=== PATIENT | male | born 1955 | race Caucasian/White ===

== ENCOUNTER 2017-10-08 03:39 | Inpatient (IN) | payer OTHER ==
[2017-10-08] VITALS (7 sets, daily range): BP systolic 100–153; BP diastolic 55–96; Ht 162.6 cm; Wt 82.0 kg
[~2017-10-08] VITALS: Ht 162.6 cm; Wt 82.0 kg
[2017-10-08 04:10] LABS: BASOPHIL % 0.5 % (0-2); PLATELET COUNT 343 x10^3mcL (130-400); RED CELL DISTRIBUTION WIDTH 18.6 % (11.5-14.5)
[2017-10-08 04:35] LABS: BILIRUBIN TOTAL 0.5 mg/dL (0.20-1.00); CALCIUM 8.1 mg/dL (8.5-10.1); CARBON DIOXIDE 24.4 mmol/L (21-32); POTASSIUM SERUM 5.5 mmol/L (3.5-5.1); TOTAL PROTEIN, SERUM 7.3 g/dL (6.4-8.2)
[2017-10-08 04:49] LABS: ALBUMIN 2.3 g/dL (3.4-5.0)
[2017-10-08 04:51] LABS: CREATININE SERUM 6.9 mg/dL (0.7-1.3)
[2017-10-08 07:20] LABS: MAGNESIUM 2.5 mg/dL (1.8-2.4)
[2017-10-08 07:23] LABS: CHOLESTEROL/HDL RATIO 2.3
[2017-10-08 07:29] LABS: T3 TOTAL 0.28 ng/mL
[2017-10-08 07:48] LABS: FREE T4 0.9 ng/dL (0.76-1.46); FREE THYROXINE INDEX 2.1 ug/dL (1.4-4.5); T4(THYROXINE) 5.5 ug/dL (4.7-13.3)
[2017-10-08] MEDS ORDERED: ZESTRIL5 MG PO (10:38)
[2017-10-08] MEDS ORDERED: LEVEMIR100 U/M1 SC (10:38)
[2017-10-08] MEDS ORDERED: METOPROLOL TART50 MG PO (10:38)
[2017-10-08] MEDS ORDERED: FUROSEMIDE40 MG PO (10:39)
[2017-10-08] MEDS ORDERED: ELIQUIS2.5 MG PO (10:39)
[2017-10-08] MEDS ORDERED: PEPCID20 MG PO (10:39)
[2017-10-08] MEDS ORDERED: TAMSULOSIN HYD0.4 M1 PO (10:39)
[2017-10-09 05:20] VITALS: BP 113/73
[2017-10-09 06:25] LABS: BASOPHIL % 0.3 % (0-2); PLATELET COUNT 237 x10^3mcL (130-400)
[2017-10-09 06:29] LABS: RED CELL DISTRIBUTION WIDTH 18.7 % (11.5-14.5)
[2017-10-09 06:30] LABS: CALCIUM 7.7 mg/dL (8.5-10.1); CARBON DIOXIDE 28.5 mmol/L (21-32); POTASSIUM SERUM 4.8 mmol/L (3.5-5.1)
[2017-10-09 06:34] LABS: CREATININE SERUM 5.2 mg/dL (0.7-1.3)
[2017-10-09 09:34] VITALS: BP 110/66
[2017-10-09 17:59] VITALS: BP 138/73
[2017-10-09 21:11] VITALS: BP 142/68
[2017-10-10 06:02] VITALS: BP 144/75
[2017-10-10 06:37] LABS: BASOPHIL % 0.1 % (0-2); PLATELET COUNT 195 x10^3mcL (130-400)
[2017-10-10 06:39] LABS: RED CELL DISTRIBUTION WIDTH 18.9 % (11.5-14.5)
[2017-10-10 06:54] LABS: CALCIUM 8.3 mg/dL (8.5-10.1); CARBON DIOXIDE 24.9 mmol/L (21-32); MAGNESIUM 2.4 mg/dL (1.8-2.4); PHOSPHOROUS 8.5 mg/dL (2.5-4.9)
[2017-10-10 07:04] LABS: CREATININE SERUM 6.6 mg/dL (0.7-1.3); POTASSIUM SERUM 5.7 mmol/L (3.5-5.1)
[2017-10-10 10:43] VITALS: BP 149/65
[2017-10-10] MEDS ORDERED: NOVOLOG100 U/ML SC (13:38)
[2017-10-10] MEDS ORDERED: LAC PO (13:40)
[2017-10-10] MEDS ORDERED: LEVAQUIN750 MG PO (13:40)
[2017-10-10 14:03] VITALS: BP 149/65
== END 2017-10-10 20:29 | disposition home health service (06) | DRG 139 ==
LOC: ED 03:39 → DU 06:05 → MU 06:05 → DU 07:00 → MU 17:50
PROVIDERS: Emergency Medicine; Family Medicine
PROC: 5A1D70Z Performance of Urinary Filtration, Intermittent, Less than 6 Hours Per Day (ICD-10-PCS; principal; 2017-10-08)
PROC: 5A1D70Z Performance of Urinary Filtration, Intermittent, Less than 6 Hours Per Day (ICD-10-PCS; 2017-10-10)
DX: J18.9 Pneumonia, unspecified organism (principal); J96.00 Acute respiratory failure, unspecified whether with hypoxia or hypercapnia; I50.43 Acute on chronic combined systolic (congestive) and diastolic (congestive) heart failure; R78.81 Bacteremia; N18.6 End stage renal disease; E11.22 Type 2 diabetes mellitus with diabetic chronic kidney disease; I48.91 Unspecified atrial fibrillation; E11.65 Type 2 diabetes mellitus with hyperglycemia; I13.2 Hypertensive heart and chronic kidney disease with heart failure and with stage 5 chronic kidney disease, or end stage renal disease; Z99.2 Dependence on renal dialysis; E87.5 Hyperkalemia; E83.39 Other disorders of phosphorus metabolism; Z60.2 Problems related to living alone; D72.829 Elevated white blood cell count, unspecified; F43.9 Reaction to severe stress, unspecified; E02 Subclinical iodine-deficiency hypothyroidism; N40.0 Benign prostatic hyperplasia without lower urinary tract symptoms; D63.1 Anemia in chronic kidney disease; Z87.891 Personal history of nicotine dependence
CPT/HCPCS: 82962; 83880; 84439; 94150; 97110-GP; 97116-GP; 97530-GP; 97535-GP; J0610; J1644; J1815; J1956; J2543; J2920; J3490; J7030; J7040; J7042; J7620; Q0092

== ENCOUNTER 2018-03-24 22:46 | Emergency (ER) | payer OTHER ==
[~2018-03-24 22:46] MED LIST: ELIQUIS2.5 MG PO; FUROSEMIDE40 MG PO; LAC PO; LEVAQUIN750 MG PO; LEVEMIR100 U/M1 SC; METOPROLOL TART50 MG PO; NOVOLOG100 U/ML SC; PEPCID20 MG PO; TAMSULOSIN HYD0.4 M1 PO; ZESTRIL5 MG PO
[2018-03-24 22:51] VITALS: Ht 162.6 cm
[2018-03-24 23:23] LABS: BASOPHIL % 0.8 % (0-2); PLATELET COUNT 134 x10^3mcL (130-400)
[2018-03-24 23:25] LABS: RED CELL DISTRIBUTION WIDTH 19.8 % (11.5-14.5)
[2018-03-24 23:46] LABS: ALBUMIN 2.1 g/dL (3.4-5.0); BILIRUBIN TOTAL 0.6 mg/dL (0.20-1.00); CALCIUM 7.7 mg/dL (8.5-10.1); CARBON DIOXIDE 29.2 mmol/L (21-32); POTASSIUM SERUM 4.3 mmol/L (3.5-5.1); TOTAL PROTEIN, SERUM 6.6 g/dL (6.4-8.2)
[2018-03-24 23:52] LABS: CREATININE SERUM 6.3 mg/dL (0.7-1.3)
[2018-03-25 05:09] VITALS: BP 118/59
== END 2018-03-25 05:09 | disposition home or self-care (01) ==
LOC: ED 22:46
PROVIDERS: Emergency Medicine
DX: E11.649 Type 2 diabetes mellitus with hypoglycemia without coma (principal); T38.3X5A Adverse effect of insulin and oral hypoglycemic [antidiabetic] drugs, initial encounter; I12.9 Hypertensive chronic kidney disease with stage 1 through stage 4 chronic kidney disease, or unspecified chronic kidney disease; E11.22 Type 2 diabetes mellitus with diabetic chronic kidney disease; N18.9 Chronic kidney disease, unspecified; Z98.890 Other specified postprocedural states; Y92.89 Other specified places as the place of occurrence of the external cause
CPT/HCPCS: 82962; J3490; Q0092

== ENCOUNTER 2018-04-13 22:10 | Inpatient (IN) | payer OTHER ==
[~2018-04-13] VITALS: Ht 162.6 cm; Wt 82.7 kg
[2018-04-13 22:16] VITALS: Ht 162.6 cm; Wt 82.7 kg
[2018-04-14 00:17] LABS: BASOPHIL % 0.5 % (0-2); PLATELET COUNT 133 x10^3mcL (130-400)
[2018-04-14 00:19] LABS: RED CELL DISTRIBUTION WIDTH 17.9 % (11.5-14.5)
[2018-04-14 00:24] LABS: BILIRUBIN TOTAL 0.5 mg/dL (0.20-1.00); CALCIUM 8.4 mg/dL (8.5-10.1); CARBON DIOXIDE 31.6 mmol/L (21-32); POTASSIUM SERUM 4.9 mmol/L (3.5-5.1); TOTAL PROTEIN, SERUM 7.1 g/dL (6.4-8.2)
[2018-04-14 00:25] LABS: ALBUMIN 2.4 g/dL (3.4-5.0); CHOLESTEROL/HDL RATIO 1.5
[2018-04-14 00:28] LABS: CREATININE SERUM 5.1 mg/dL (0.7-1.3)
[2018-04-14 00:31] LABS: T3 TOTAL 0.53 ng/mL
[2018-04-14 00:33] LABS: FREE T4 1.17 ng/dL (0.76-1.46); FREE THYROXINE INDEX 1.9 ug/dL (1.4-4.5); T4(THYROXINE) 5.2 ug/dL (4.7-13.3)
[2018-04-14 00:54] LABS: UA SPECIFIC GRAVITY 1.015 (1.005-1.035); microscopic required? YES; urine erythrocyte 3+ (NEGATIVE)
[2018-04-14 02:28] LABS: MAGNESIUM 2.6 mg/dL (1.8-2.4); PHOSPHOROUS 3.2 mg/dL (2.5-4.9)
[2018-04-14 05:19] LABS: BASOPHIL % 0.2 % (0-2)
[2018-04-14 05:27] LABS: CALCIUM 7.9 mg/dL (8.5-10.1); CARBON DIOXIDE 34.6 mmol/L (21-32); MAGNESIUM 2.5 mg/dL (1.8-2.4); PHOSPHOROUS 3.5 mg/dL (2.5-4.9); POTASSIUM SERUM 5.4 mmol/L (3.5-5.1)
[2018-04-14 05:30] LABS: CREATININE SERUM 5.5 mg/dL (0.7-1.3); PLATELET COUNT 122 x10^3mcL (130-400)
[2018-04-14 09:29] VITALS: BP 145/91
[2018-04-14 09:49] VITALS: BP 145/91
[2018-04-14 12:45] VITALS: BP 123/77
[2018-04-14 16:30] VITALS: BP 125/75
[2018-04-14 20:53] VITALS: BP 128/81
[2018-04-15 05:11] VITALS: BP 101/54
[2018-04-15 06:31] LABS: BASOPHIL % 0.9 % (0-2); PLATELET COUNT 140 x10^3mcL (130-400)
[2018-04-15 06:41] LABS: RED CELL DISTRIBUTION WIDTH 17.5 % (11.5-14.5)
[2018-04-15 06:43] LABS: CALCIUM 8.4 mg/dL (8.5-10.1); MAGNESIUM 3.1 mg/dL (1.8-2.4); PHOSPHOROUS 4.5 mg/dL (2.5-4.9); POTASSIUM SERUM 5.4 mmol/L (3.5-5.1)
[2018-04-15 07:00] LABS: CARBON DIOXIDE 28.9 mmol/L (21-32)
[2018-04-15 07:16] LABS: CREATININE SERUM 6.4 mg/dL (0.7-1.3)
[2018-04-15 09:51] VITALS: BP 121/88
[2018-04-15 13:21] VITALS: BP 121/74
[2018-04-15 16:00] VITALS: BP 120/72
[2018-04-15 17:44] VITALS: BP 112/73
[2018-04-15 20:36] VITALS: BP 115/65
[2018-04-16 06:21] VITALS: BP 126/73
[2018-04-16 06:50] LABS: BASOPHIL % 1.1 % (0-2); PLATELET COUNT 150 x10^3mcL (130-400)
[2018-04-16 07:01] LABS: RED CELL DISTRIBUTION WIDTH 17.9 % (11.5-14.5)
[2018-04-16 07:14] LABS: CALCIUM 8.2 mg/dL (8.5-10.1); CARBON DIOXIDE 27.4 mmol/L (21-32); MAGNESIUM 2.8 mg/dL (1.8-2.4)
[2018-04-16 09:15] VITALS: BP 138/76
[2018-04-16 12:02] LABS: CREATININE SERUM 5.8 mg/dL (0.7-1.3)
[2018-04-16 12:29] VITALS: BP 135/79
[2018-04-16 14:08] VITALS: BP 135/79
[2018-04-16] MEDS ORDERED: LEVEMIR100 U/M1 SC (14:41)
== END 2018-04-16 17:04 | disposition home or self-care (01) | DRG 420 ==
LOC: ED 22:10 → DU 04-14 00:57
PROVIDERS: Internal Medicine; Specialist
PROC: 5A1D70Z Performance of Urinary Filtration, Intermittent, Less than 6 Hours Per Day (ICD-10-PCS; principal; 2018-04-15)
DX: E10.649 Type 1 diabetes mellitus with hypoglycemia without coma (principal); N17.0 Acute kidney failure with tubular necrosis; G93.41 Metabolic encephalopathy; E43 Unspecified severe protein-calorie malnutrition; I13.2 Hypertensive heart and chronic kidney disease with heart failure and with stage 5 chronic kidney disease, or end stage renal disease; D69.6 Thrombocytopenia, unspecified; E10.22 Type 1 diabetes mellitus with diabetic chronic kidney disease; N18.6 End stage renal disease; E83.41 Hypermagnesemia; I48.91 Unspecified atrial fibrillation; I50.9 Heart failure, unspecified; E87.5 Hyperkalemia; E87.1 Hypo-osmolality and hyponatremia; E10.65 Type 1 diabetes mellitus with hyperglycemia; R80.9 Proteinuria, unspecified; N40.0 Benign prostatic hyperplasia without lower urinary tract symptoms; Z99.2 Dependence on renal dialysis; Z79.4 Long term (current) use of insulin; Z68.33 Body mass index [BMI] 33.0-33.9, adult; Z79.899 Other long term (current) drug therapy
CPT/HCPCS: 82962; 83880; 84439; 97110-GP; 97116-GP; J3490; J7030; Q0092